=== PATIENT | male | born 1965 ===

== ENCOUNTER 2023-11-22 10:20 | Day surgery (SDC) | payer OTHER ==
[2023-11-20 09:18] LABS: URINE APPEARANCE Clear; URINE BILIRRUBIN Negative (NEGATIVE); URINE BLOOD Negative; URINE COLOR Yellow; URINE GLUCOSE Negative (NEGATIVE); URINE LEUKOCYTE Negative; URINE NITRATE Negative; URINE PROTEIN Negative (NEGATIVE); URINE UROBILINOGEN 0.2 E.U./dl
[2023-11-20 09:19] LABS: HEMOGLOBIN 13.1 g/dL (13-16.00); MEAN CELL VOLUME 90.2 fL (80.0-100.00); MEAN CORPUSCULAR HEMOGLOBIN 31.1 pg (27.00-32.0); MEAN CORPUSCULAR HGB CONC 34.5 g/dl (32.0-36.0); PLATELET COUNT 288 K/uL (150-450); RED BLOOD COUNT 4.21 M/uL (4.00-6.00); RED CELL DISTRIBUTION WIDTH 12.7 % (11.5-14.5)
[2023-11-20 09:22] LABS: URINE BACTERIA 6.2 uL (0.0-1933); URINE EPITHELIAL CELLS 3.6 uL (0.0-38.8); URINE RBC 2.2 uL (0.0-20.8)
[2023-11-20 09:48] LABS: INR 1.05; PARTIAL THROMBOPLASTIN TIME 32.5 SECONDS (22.0-34.0)
[2023-11-20 10:23] LABS: BILIRUBIN TOTAL 1.69 mg/dL (0.3-1.2); CALCIUM 9.4 mg/dL (8.5-10.1); CREATININE SERUM 0.76 mg/dL (0.70-1.30); GFR 106.09; GLOBULINA 2.7 G/DL (2.4-3.5); POTASSIUM 4.44 mEq/L (3.5-5.1); TOTAL PROTEIN 6.7 gm/dL (6.4-8.2)
[~2023-11-22] VITALS: Ht 172.7 cm; Wt 70.3 kg
[2023-11-22] MEDS ORDERED: BUPIVACAINE HCL/Mpf 0.5% 10ML VIAL ONE ×2 (13:10→14:42)
[2023-11-22] MEDS ORDERED: KETOROLAC TROMETHAMINE 30 MG VIAL ONE (13:10)
[2023-11-22] MEDS ORDERED: CEFAZOLIN SODIUM 1,000 MG VIAL ONE (13:15)
[2023-11-22] MEDS ORDERED: ENALAPRILAT DIHYDRATE 1.25 MG/ML VIAL IV ONE (15:46)
== END 2023-11-22 17:25 | disposition home or self-care (01) ==
LOC: CIR.AMB 10:20
PROVIDERS: ATTEND Orthopaedic Surgery
DX: S46.211A Strain of muscle, fascia and tendon of other parts of biceps, right arm, initial encounter (principal); Z88.6 Allergy status to analgesic agent